=== PATIENT | female | born 2000 | race Caucasian/White ===

== ENCOUNTER 2022-01-22 14:13 | Emergency (ER) | payer OTHER, SELFPAY ==
[2022-01-22] VITALS (10 sets, daily range): BP systolic 111–135; BP diastolic 70–88; PULSE 58–90; RESP 18; TEMP 36.7–36.8; O2SAT 97–99; BMI 20.5
--- NOTE | 2022-01-22 14:20 | ECG_ITS ---
APPROVED REPORT Exam: Resting ECG HR:73 bpm ECG Measurements Heart Rate 73 AXES SD 131 P 69 QRSd 85 QRS 72 QT 379 T 40 QTc 405 Conclusion SINUS RHYTHM WITH SINUS ARRHYTHMIA NORMAL ECG UNCONFIRMED REPORT Electronically signed by : Dandy Arnold MD 01/23/2022 17:42:47
--- NOTE | 2022-01-22 14:24 | HMH.EDGENADL ---
ED Disposition Clinical Impression: Right ovarian cyst, Right lower quadrant abdominal pain, Atypical chest pain Disposition: Home, Self-Care Condition on Discharge: Good Instructions: DI for Ovarian Cyst, DI for Abdominal Pain-Adult Additional Instructions: OTC Ibuprofen as needed for pain (400 to 600 mg every 6 hrs as needed). See Dr. Jacobs, ACUTE CARE ASSISTANT, in her office tomorrow or Thursday. Call tomorrow to make appointment. See Dr. Gonzalez, surgery, in his office on Thursday. His office personnel will call you tomorrow to make appointment. Return to the emergency department if worsening abdominal pain, fever, vomiting. Referrals: Provider,MD Toby [Primary Care Provider] - Celio Gonzalez MD [Staff Physician] - Dayami Jacobs DO [Physician] - - Critical Care Critical Care Time: No Attestation: On , the high probability of a clinically significant, sudden or life threatening deterioration of the following system(s) required my full and direct attention, intervention and personal management. The time I documented below is in addition to time spent performing reported procedures but includes the following listed in this critical care notation. Medical Decision Making - Medical Records Medical records reviewed: Yes: I reviewed the patient's medical records. MR Comment: Records obtained from [facility] emergency department from most recent emergency department visit. Other visit records were not sent. Reviewed record that was obtained. - Robby Inquiry Pt receiving controlled substance: No Vital Signs: 01/22/22 14:15 01/22/22 15:00 01/22/22 15:30 Temperature 98.2 F Temperature Source Oral Pulse Rate 78 58 L Pulse Rate [Left Radial] 80 Respiratory Rate 18 Blood Pressure 125/86 117/73 Blood Pressure [Right Arm] 128/87 Blood Pressure Mean 105 90 Blood Pressure Mean [Right Arm] 100 Blood Pressure Source [Right Arm] Automatic Cuff Blood Pressure Position [Right Arm] Sitting 02 Sat by Pulse Oximetry 98 98 99 Oxygen Delivery Method Room Air Room Air 01/22/22 16:00 01/22/22 16:30 01/22/22 17:00 Temperature Temperature Source Pulse Rate 90 90 64 Pulse Rate [Left Radial] Respiratory Rate Blood Pressure 120/79 121/73 121/71 Blood Pressure [Right Arm] Blood Pressure Mean 94 90 90 Blood Pressure Mean [Right Arm] Blood Pressure Source [Right Arm] Blood Pressure Position [Right Arm] 02 Sat by Pulse Oximetry 98 97 Oxygen Delivery Method 01/22/22 18:00 01/22/22 18:30 01/22/22 18:56 Temperature 98.0 F Temperature Source Oral Pulse Rate 80 68 75 Pulse Rate [Left Radial] Respiratory Rate 18 Blood Pressure 122/71 123/88 135/78 Blood Pressure [Right Arm] Blood Pressure Mean 92 102 Blood Pressure Mean [Right Arm] Blood Pressure Source [Right Arm] Blood Pressure Position [Right Arm] 02 Sat by Pulse Oximetry 99 99 Oxygen Delivery Method Room Air 01/22/22 19:00 Temperature Temperature Source Pulse Rate 66 Pulse Rate [Left Radial] Respiratory Rate Blood Pressure 111/70 Blood Pressure [Right Arm] Blood Pressure Mean 83 Blood Pressure Mean [Right Arm] Blood Pressure Source [Right Arm] Blood Pressure Position [Right Arm] 02 Sat by Pulse Oximetry 98 Oxygen Delivery Method - Lab Data Lab Results 01/22/22 14:26: WBC 8.5, RBC 4.63, Hgb 14.6, Hct 42.8, MCV 92.5, MCH 31.6 H, MCHC 34.2, RDW 13.2, Plt Count 242, MPV 8.2, Neut % (Auto) 80.0, Lymph % (Auto) 14.2, [place] % (Auto) 4.1, Eos % (Auto) 1.0, Baso % (Auto) 0.8, Neut # (Auto) 6.8, Lymph # (Auto) 1.2, [place] # (Auto) 0.4, Eos # (Auto) 0.1, Baso # (Auto) 0.1 01/22/22 14:26: Sodium 138, Potassium 3.8, Chloride 108 H, Carbon Dioxide 24, Anion Gap 9.8, BUN 14, Creatinine 0.80, Estimated Creat Clear 95, Estimated GFR 90, Est GFR ( Amer) 109, Glucose 93, Calcium 8.5, Troponin I < 0.01 01/22/22 14:26: Total Bilirubin 0.7, Direct Bilirubin 0.3, Conjugated Bilirubin 0.0, Indire
--- NOTE | 2022-01-22 14:30 | XR_ITS ---
FINAL REPORT CLINICAL HISTORY: chest pain FINDINGS: TWO-VIEW CHEST The heart size is normal. The mediastinum is normal. The lungs are clear. There is no pneumothorax. IMPRESSION: No acute cardiopulmonary process. Reviewed, Interpreted and Dictated by Bayron Abbott MD Transcribed by Nava Diamond Authenticated by Bayron Abbott MD on 01/22/2022 04:06:41 PM [facility]
[2022-01-22 14:55] LABS: Chloride 108 mmol/L (98-107)
[2022-01-22 14:56] LABS: Basophils # 0.1 K/mm3 (0-0.2); Basophils % 0.8 % (0.1-2.0); Eosinophils # 0.1 K/mm3 (0.0-0.4); Hematocrit 42.8 % (37.0-47.0); Hemoglobin 14.6 g/dL (12.2-16.2); Lymphocytes # 1.2 K/mm3 (0.7-4.5); Lymphocytes % 14.2 % (10-50); Mean Corpuscular HGB Conc 34.2 g/dL (31.8-35.4); Mean Corpuscular Hemoglobin 31.6 pg (27.0-31.2); Mean Corpuscular Volume 92.5 fl (81-99); Mean Platelet Volume 8.2 fl (7.4-10.4); Monocytes # 0.4 K/mm3 (0.1-1.0); Monocytes % 4.1 % (1.7-9.3); Neutrophils # 6.8 K/mm3 (1.8-7.8); Platelet Count 242 K/mm3 (142-424); Potassium 3.8 mmoL/L (3.5-5.1); Red Blood Count 4.63 M/mm3 (4.20-5.40); Red Cell Distribution Width 13.2 % (11.5-17.5); Sodium 138 mmol/L (136-145); White Blood Count 8.5 K/mm3 (4.8-10.8)
[2022-01-22 14:58] LABS: Blood Urea Nitrogen 14 mg/dl (7-17); Creatinine Clearance Estimated 95 mL/min (50-200); Estimated Glomerular Filt Rate 90 ml/min (>60); GFR (African American) 109 ML/MIN (>60)
[2022-01-22 14:59] LABS: Anion Gap 9.8 mEq/L (5-15); Calcium 8.5 mg/dl (8.4-10.2); Carbon Dioxide 24 mmol/L (22.0-30.0); Glucose 93 mg/dl (74-100)
[2022-01-22 15:03] LABS: Alanine Aminotransferase 14 U/L (12-78); Alkaline Phosphatase 78 U/L (38-126); Aspartate Amino Transferase 23 U/L (14-36); Bilirubin,Direct 0.3 mg/dl (0.0-0.4); Bilirubin,Indirect 0.4 mg/dL (0.0-0.9); Bilirubin,Total 0.7 mg/dl (0.2-1.3); Bilirubin,Unconjugated 0.4 mg/dL (0.0-1.1)
[2022-01-22 15:04] LABS: Albumin Level 4.4 g/dl (3.5-5.0); Lipase 73 U/L (23-300); Total Protein,Serum 7.5 g/dl (6.3-8.2)
--- NOTE | 2022-01-22 15:04 | CT_ITS ---
PROCEDURE INFORMATION: Exam: CT Abdomen And Pelvis With Contrast Exam date and time: 01/22/2022 4:09 PM Age: 21 years old Clinical indication: Abdominal pain; Generalized; Additional info: Rlq abdominal pain TECHNIQUE: Imaging protocol: Computed tomography of the abdomen and pelvis with contrast. Radiation optimization: All CT scans at this facility use at least one of these dose optimization techniques: automated exposure control; mA and/or kV adjustment per patient size (includes targeted exams where dose is matched to clinical indication); or iterative reconstruction. Contrast material: ISOVUE; Contrast volume: 75 ml; Contrast route: IV; COMPARISON: CR XR CHEST 2V 01/22/2022 2:38 PM FINDINGS: Lungs: Mild linear scarring in the lingula. Lung bases are clear. Liver: Normal. No mass. Gallbladder and bile ducts: Normal. No calcified stones. No ductal dilation. Pancreas: Normal. No ductal dilation. Spleen: Normal. No splenomegaly. Adrenal glands: Normal. No mass. Kidneys and ureters: Nonobstructive 2 mm left renal stone. Kidneys are otherwise unremarkable. Ureters are unremarkable. Stomach and bowel: No bowel obstruction or significant bowel wall thickening. There is excessive colonic stool content. Appendix: Minimally distended appendix measuring 7.5 mm with mild mucosal hyperemia. No periappendiceal fat stranding. No periappendiceal free fluid or fluid collections. Intraperitoneal space: Trace free fluid in the cul-de-sac. No intraperitoneal fluid collections. No intraperitoneal free air. Arteries: Unremarkable. No abdominal aortic aneurysm. Veins: There is prominence of the pelvic vessels, as could be seen with pelvic congestion syndrome. Lymph nodes: No retroperitoneal, pelvic, or mesenteric adenopathy. Urinary bladder: Unremarkable as visualized. Reproductive: 4.6 cm x 4.6 cm right adnexal cyst. Reproductive organs appear otherwise unremarkable. Bones/joints: No acute skeletal abnormality or aggressive osseous lesion. Soft tissues: No acute body wall soft tissue findings. IMPRESSION: 1. 4.6 cm x 4.6 cm cyst in the right adnexa. In this patient presenting with right lower quadrant pain, I would consider correlation with ultrasound to exclude any possibility of ovarian torsion. 2. Minimally distended appendix measuring 7.5 mm in diameter with very mild mucosal hyperemia. There is no evidence for periappendiceal inflammatory changes, free fluid, or fluid collections. We could be dealing with perhaps very early or very mild appendicitis in the appropriate clinical setting. COMMENTS: THIS REPORT CONTAINS FINDINGS THAT MAY BE CRITICAL TO PATIENT CARE. The findings were verbally communicated via telephone conference with GILBERT DRISCOLL at 5:11 PM EDT on 01/22/2022. The findings were acknowledged and understood.
[2022-01-22 15:06] LABS: HCG Qualitative, Serum Negative (Negative)
--- NOTE | 2022-01-22 15:08 | PC.NURSE ---
ED MD at
[2022-01-22 15:13] LABS: Troponin I < 0.01 ng/ml (0.00-0.034)
[2022-01-22 15:26] LABS: D-Dimer 0.44 ug/mL (0.0-0.5)
--- NOTE | 2022-01-22 16:00 | PC.NURSE ---
Notified Dayami in radiology that patient was ready for CT
--- NOTE | 2022-01-22 16:08 | PC.NURSE ---
Patient to radiology with electronics warfare technician by wheelchair
--- NOTE | 2022-01-22 16:21 | PC.NURSE ---
Patient back from CT with options trader by wheelchair
--- NOTE | 2022-01-22 17:10 | PC.NURSE ---
pt resting in bed at this time, states no needs
--- NOTE | 2022-01-22 17:11 | US_ITS ---
PROCEDURE INFORMATION: Exam: US Pelvis, Transvaginal Exam date and time: 01/22/2022 5:24 PM Age: 21 years old Clinical indication: Pelvic pain; Additional info: R ovarian cyst, R/O torsion TECHNIQUE: Imaging protocol: Real-time transvaginal pelvic ultrasound with image documentation. Transvaginal imaging was used for better evaluation of the endometrium, adnexa, and/or cervix. COMPARISON: CT ABDOMEN PELVIS W CON 01/22/2022 4:09 PM FINDINGS: Uterus: Homogeneous uterus which measures 7.2 cm x 3.7 cm x 4.7 cm. No uterine masses or abnormal uterine contour. Normal endometrium measuring 0.3 cm in thickness. Cervix: Normal cervix. Right ovary/adnexa: Right ovary measures 5 cm x 3.5 cm by 4 cm. Right ovarian simple cyst measuring 4.5 cm x 3.2 cm x 3.5 cm. Normal right ovarian vascularity. Left ovary/adnexa: Left ovary measures 3.2 cm x 1.9 cm by 2.2 cm. Normal left ovarian follicles. No left ovarian masses. Normal left ovarian vascularity. Intraperitoneal space: No free fluid in the pelvis. IMPRESSION: 1. Simple cyst in the right ovary which measures 4.5 cm x 3.2 cm x 3.5 cm. Benign finding in the physiologic size range. No follow-up is needed. (Reference: [facility], 2019) 2. No ovarian torsion. 3. No other acute pelvic pathology noted. REFERENCES: [facility] Flood et al. Simple Adnexal Cysts: U Consensus Conference Update on Follow-up and Reporting. Radiology. 2019;293(2):359-371.
--- NOTE | 2022-01-22 17:45 | PC.NURSE ---
patient back from CT with educational technician by wheelchair
--- NOTE | 2022-01-22 18:03 | PC.NURSE ---
called airline lounge receptionist for surgery per er doctor
[2022-01-22 18:06] LABS: Troponin I < 0.01 ng/ml (0.00-0.034)
--- NOTE | 2022-01-22 18:10 | PC.NURSE ---
dr carreno on phone with er doctor
--- NOTE | 2022-01-22 18:12 | PC.NURSE ---
per er doctor patient can eat and drink as no surgery done this date
--- NOTE | 2022-01-22 18:14 | PC.NURSE ---
called for a supper tray
--- NOTE | 2022-01-22 18:21 | PC.NURSE ---
yoav banuelos learning and development consultant for obgyn per er doctor
== END 2022-01-22 19:10 | disposition home or self-care (01) ==
PROVIDERS: Emergency Provider Emergency Medicine
DX: N83.201 Unspecified ovarian cyst, right side (principal); R10.31 Right lower quadrant pain
CPT/HCPCS: 36415; 71046; 74177; 76830; 80048; 80076; 83690; 84484; 84703; 85025; 85378; 93005; 96374; 96375; 99284; Q9967

== ENCOUNTER 2022-01-23 16:56 | Emergency (ER) | payer OTHER, SELFPAY ==
[2022-01-23 16:57] VITALS: BP 144/95; PULSE 96; RESP 18; TEMP 36.9; O2SAT 99; BMI 20.5
--- NOTE | 2022-01-23 17:00 | PC.NURSE ---
patient ambulatory to restroom without complications
--- NOTE | 2022-01-23 17:11 | PC.NURSE ---
ED MD at
[2022-01-23 17:30] VITALS: BP 129/88; PULSE 80; O2SAT 98
[2022-01-23 17:59] LABS: Basophils # 0.1 K/mm3 (0-0.2); Basophils % 2.2 % (0.1-2.0); Eosinophils % 0.5 % (0.1-12.0); Hematocrit 41.8 % (37.0-47.0); Hemoglobin 14.3 g/dL (12.2-16.2); Lymphocytes % 15.6 % (10-50); Mean Corpuscular HGB Conc 34.2 g/dL (31.8-35.4); Mean Corpuscular Hemoglobin 31.3 pg (27.0-31.2); Mean Corpuscular Volume 91.4 fl (81-99); Mean Platelet Volume 7.7 fl (7.4-10.4); Monocytes # 0.3 K/mm3 (0.1-1.0); Monocytes % 3.7 % (1.7-9.3); Neutrophils # 5.1 K/mm3 (1.8-7.8); Neutrophils % 78.1 % (37.0-80.0); Platelet Count 246 K/mm3 (142-424); Red Blood Count 4.58 M/mm3 (4.20-5.40); Red Cell Distribution Width 13.1 % (11.5-17.5); White Blood Count 6.6 K/mm3 (4.8-10.8)
[2022-01-23 18:00] VITALS: BP 118/84; PULSE 95; O2SAT 98
[2022-01-23 18:01] LABS: Microscopic, Urine URINE MICROSCOPIC (MICROSCOPIC)
--- NOTE | 2022-01-23 18:03 | HMH.EDGENADL ---
ED Disposition Clinical Impression: Right ovarian cyst UTI (urinary tract infection) Qualifiers: Urinary tract infection type: acute cystitis Hematuria presence: without hematuria Qualified Code(s): N30.00 - Acute cystitis without hematuria Disposition: Home, Self-Care Condition on Discharge: Good Instructions: DI for Urinary Tract Infection (UTI) Prescriptions: cephALEXin [Cephalexin 500mg Tab] 500 mg PO BID #14 tab Transmission Status: Pending to [id number] Referrals: Provider,MD Toby [Primary Care Provider] - Celio Gonzalez MD [Staff Physician] - - Critical Care Critical Care Time: No Attestation: On 01/23/22, the high probability of a clinically significant, sudden or life threatening deterioration of the following system(s) required my full and direct attention, intervention and personal management. The time I documented below is in addition to time spent performing reported procedures but includes the following listed in this critical care notation. Medical Decision Making - Medical Records Medical records reviewed: Yes: I reviewed the patient's medical records. - Robby Inquiry Pt receiving controlled substance: No Vital Signs: 01/23/22 16:57 01/23/22 17:30 01/23/22 18:00 Temperature 98.5 F Temperature Source Oral Pulse Rate 80 95 H Pulse Rate [Left Radial] 96 H Respiratory Rate 18 Blood Pressure 129/88 118/84 Blood Pressure [Right Arm] 144/95 H Blood Pressure Mean 95 Blood Pressure Mean [Right Arm] 111 Blood Pressure Source [Right Arm] Automatic Cuff Blood Pressure Position [Right Arm] Sitting 02 Sat by Pulse Oximetry 99 98 98 Oxygen Delivery Method Room Air Room Air Room Air - Lab Data Lab Results 01/23/22 17:12: Urine Color Yellow, Urine Appearance Clear, Urine pH 6.0, Ur Specific [place] 1.025, Urine Protein 1+, Urine Glucose (UA) Negative, Urine Ketones 2+, Urine Blood 3+, Urine Nitrate Negative, Urine Bilirubin 1+ A, Urine Urobilinogen 0.2, Ur Leukocyte Esterase Trace, Urine RBC 5-10, Urine WBC 5-10, Ur Squamous Epith Cells 3-5, Urine Bacteria 1+ 01/23/22 17:12: Urine HCG, Qual Negative 01/23/22 17:49: WBC 6.6, RBC 4.58, Hgb 14.3, Hct 41.8, MCV 91.4, MCH 31.3 H, MCHC 34.2, RDW 13.1, Plt Count 246, MPV 7.7, Neut % (Auto) 78.1, Lymph % (Auto) 15.6, [place] % (Auto) 3.7, Eos % (Auto) 0.5, Baso % (Auto) 2.2 H, Neut # (Auto) 5.1, Lymph # (Auto) 1.0, [place] # (Auto) 0.3, Eos # (Auto) 0.0, Baso # (Auto) 0.1 01/23/22 17:49: Sodium 139, Potassium 4.4, Chloride 107, Carbon Dioxide 24, Anion Gap 12.4, BUN 19 H D, Creatinine 0.80, Estimated Creat Clear 95, Estimated GFR 90, Est GFR ( Amer) 109, Glucose 96, Calcium 8.7, Total Bilirubin 0.9, AST 23, ALT 14, Alkaline Phosphatase 68, Total Protein 7.6, Albumin 4.6, Globulin 3.0, Albumin/Globulin Ratio 1.5, Lipase 78 Result diagrams: 01/23/22 17:49 01/23/22 17:49 - Reevaluation(s) Time: 19:08 Reevaluation #1: On reevaluation, the patient is feeling fine. She is afebrile, hemodynamically stable. There is no evidence of leukocytosis. Repeat abdominal examination does not show any evidence of acute abdomen or significant pathology. She is tolerating oral intake. At this time, family would like to maintain their normal outpatient follow-up. They do have general surgery as well as REVIEW SCHEDULING COORDINATOR follow-up tomorrow. They are to maintain this appointment. She does have some bacteria in her urine I will place her on an antibiotic for this. She is to have any worsening fever at home or change symptoms she is to return the emergency department immediately. Verbalized understanding. Medical Decision Narrative: 21-year-old female presented to the emergency department with some fevers at home. Patient was diagnosed with ovarian cyst as well as some appendix inflammation. Patient's abdominal examination is relatively benign. There is no evidence of acute abdomen. She does not have a fever on evaluation the emergency dep
[2022-01-23 18:09] LABS: Appearance,Urine CLEAR (Clear); Blood, Urine 3+ (Negative); Color,Urine YELLOW (Yellow); Glucose,Urine (UA) Negative (Negative); Ketones,Urine 2+ (Negative); Leukocyte Esterase,Urine TRACE (Negative); Nitrate,Urine Negative (Negative); Protein,Urine 1+ (Negative); Specific Gravity, Urine 1.025 (1.005-1.030); Urobilinogen,Urine 0.2 EU/dl (0.2)
[2022-01-23 18:10] LABS: Chloride 107 mmol/L (98-107); Potassium 4.4 mmoL/L (3.5-5.1); Sodium 139 mmol/L (136-145)
[2022-01-23 18:12] LABS: Alanine Aminotransferase 14 U/L (12-78); Alkaline Phosphatase 68 U/L (38-126); Aspartate Amino Transferase 23 U/L (14-36); Bilirubin,Total 0.9 mg/dl (0.2-1.3); Blood Urea Nitrogen 19 mg/dl (7-17); Creatinine Clearance Estimated 95 mL/min (50-200); Estimated Glomerular Filt Rate 90 ml/min (>60); GFR (African American) 109 ML/MIN (>60)
[2022-01-23 18:13] LABS: Urine Pregnancy, HCG Qual. Negative (Negative)
[2022-01-23 18:13] LABS: Albumin Level 4.6 g/dl (3.5-5.0); Albumin/Globulin Ratio 1.5 (1.1-1.8); Anion Gap 12.4 mEq/L (5-15); Calcium 8.7 mg/dl (8.4-10.2); Carbon Dioxide 24 mmol/L (22.0-30.0); Glucose 96 mg/dl (74-100); Lipase 78 U/L (23-300); Total Protein,Serum 7.6 g/dl (6.3-8.2)
[2022-01-23 18:15] LABS: Bilirubin,Urine 1+ (Negative)
[2022-01-23 18:34] LABS: Bacteria,Urine 1+ /lpf
[2022-01-23 19:15] VITALS: BP 123/86; PULSE 97; RESP 16; TEMP 36.6; O2SAT 100
== END 2022-01-23 20:28 | disposition home or self-care (01) ==
PROVIDERS: Emergency Provider Emergency Medicine
DX: N30.00 Acute cystitis without hematuria (principal); N83.201 Unspecified ovarian cyst, right side
CPT/HCPCS: 80053; 81001; 81025; 83690; 85025; 99283

== ENCOUNTER → 2022-05-22 12:48 | Outpatient (CLI) | payer OTHER, SELFPAY ==
[2022-05-24 09:17] LABS: Hepatitis B Surface Antigen Negative (Negative)
== END ==
PROVIDERS: Visit Provider Dentist General Practice
DX: Z01.84 Encounter for antibody response examination (principal)
CPT/HCPCS: 36415; 87340

== ENCOUNTER → 2022-12-18 15:17 | Outpatient (CLI) | payer OTHER, SELFPAY ==
[2022-12-18 16:29] LABS: Basophils % 0.5 % (0.1-2.0); Eosinophils # 0.1 K/mm3 (0.0-0.4); Eosinophils % 1.2 % (0.1-12.0); Hemoglobin 11.5 g/dL (12.2-16.2); Lymphocytes # 1.6 K/mm3 (0.7-4.5); Mean Corpuscular Hemoglobin 31.5 pg (27.0-31.2); Mean Corpuscular Volume 90.2 fl (81-99); Mean Platelet Volume 7.8 fl (7.4-10.4); Monocytes # 0.3 K/mm3 (0.1-1.0); Monocytes % 4.6 % (1.7-9.3); Neutrophils # 4.6 K/mm3 (1.8-7.8); Neutrophils % 69.8 % (37.0-80.0); Platelet Count 272 K/mm3 (142-424); Red Blood Count 3.66 M/mm3 (4.20-5.40); Red Cell Distribution Width 13.2 % (11.5-17.5); White Blood Count 6.6 K/mm3 (4.8-10.8)
[2022-12-20 09:17] LABS: HIV Screen 4th Generation wRfx Non Reactive (Non Reactive); Rapid Plasma Reagin Ab Titer Non Reactive (NonRea<1:1); Rubella Antibodies, IgG <0.90 index (Immune >0.99)
[2022-12-22 22:24] LABS: Neisseria gonorrhoeae, NAA Negative (Negative)
[2022-12-29 02:08] LABS: Hepatitis B Surface Antigen NEGATIVE; Hepatitis C Antibody NON REACTIVE
== END ==
PROVIDERS: PCP Physician Assistant; Visit Provider Obstetrics & Gynecology
DX: Z34.90 Encounter for supervision of normal pregnancy, unspecified, unspecified trimester (principal)
CPT/HCPCS: 36415; 85025; 86593; 86703; 86762; 86850; 87086; 87340; 87380; 87491; 87591; G0432

== ENCOUNTER → 2023-02-04 14:21 | Outpatient (CLI) | payer OTHER, SELFPAY ==
--- NOTE | 2023-02-04 14:27 | US_ITS ---
FINAL REPORT CLINICAL HISTORY: 20 week anatomy scan-- use anatomy scan template COMPARISON: 01/22/2022 FINDINGS: There is a single live intrauterine gestation. Presentation is breech. The cervix is closed and measures 2.8 cm. Placenta is posterior. movement is noted. heart rate documented at 149 beats per minute Three-vessel cord with satisfactory umbilical cord insertion. Four-chamber heart is noted. brain and ventricles are unremarkable. Chest and diaphragm are unremarkable. ABDOMEN: Both kidneys are unremarkable. Stomach is unremarkable. SPINE: No anomalies identified. AMNIOTIC FLUID: Appropriate amount. MEASUREMENTS: ULTRASOUND AGE: 19 weeks 4 days. GESTATION AGE: 20 weeks 1 days. ESTIMATED WEIGHT: 288 g GROWTH PERCENTILE: 11 % BPD: 4.54 cm consistent with 19 weeks 6 days. OFD: 5.73 cm consistent with 19 weeks 6 days. HC: 16.24 cm consistent with 19 weeks 1 days. AC: 13.44 cm consistent with 19 weeks 0 days. FL: 3.18 cm consistent with 20 weeks 0 days. CEREBELLUM: 1.95 cm consistent with 20 weeks 0 days. HUMERUS: 2.97 cm consistent with 19 weeks 6 days. HC/AC: 1.21 CI: 79% FL/BPD: 70% FL/AC: 24% IMPRESSION: Single living IUP with an ultrasound age of 19 weeks 4 days. Reviewed, Interpreted and Dictated by Aníbal Baugh III, MD Transcribed by Shasha Nicholas Authenticated and [facility]
== END ==
PROVIDERS: PCP Physician Assistant; Visit Provider Obstetrics & Gynecology
DX: Z34.90 Encounter for supervision of normal pregnancy, unspecified, unspecified trimester (principal); Z3A.20 20 weeks gestation of pregnancy
CPT/HCPCS: 76811